=== PATIENT | female | born 1990 | race Caucasian/White ===

== ENCOUNTER 2022-05-16 12:17 | Emergency (ER) | payer BC ==
[~2022-05-16] VITALS: Ht 154.9 cm; Wt 56.7 kg
[2022-05-16 12:17] VITALS: BP_SYST 137
--- NOTE | 2022-05-16 12:20 | NUR ---
Patient triaged and placed. VSS and patient appears in no acute distress at this time. Accompanied by EMT'S, awaiting available bed, and MD notified of need for MSE.
--- NOTE | 2022-05-16 12:25 | NUR ---
PT [facility] 65 FOR TONIC CLONIC SEIZURE AT HOME WITNESSED BY PARENTS LASTING PER EMS AROUND 2 MIN. PT FELL FROM SEAT TO FLOOR, HEMATOMA TO R OCCIPITAL HEAD. PT ARRIVES AAOX4, VSS. PT STATES SHE HAS NOT HAD A SEIZURE IN OVER 10 YEARS AND DOES NOT TAKE MEDICATION.
--- NOTE | 2022-05-16 12:48 | NUR ---
Placed in room 8 . Placed on nurse monitoring, blood pressure machine and pulse oximeter. To gown for exam. Side rails up. Report given to ALESSANDRA CORDOBA.
--- NOTE | 2022-05-16 12:59 | NUR ---
LAB AT THE BEDSIDE FOR BLOOD DRAW
[2022-05-16 13:02] LABS: BASOPHILS # (AUTO) 0.1 K/uL (0.0-0.2); BASOPHILS % (AUTO) 1.1 % (0.0-2.0); EOSINOPHILS # (AUTO) 0.2 K/uL (0.0-0.4); EOSINOPHILS % (AUTO) 2.3 % (0.0-4.0); HEMATOCRIT 38.9 % (36-48); LYMPHOCYTES # (AUTO) 2.1 K/uL (1.0-5.5); MEAN CORPUSCULAR VOLUME 86 fL (79.0-98.0); MONOCYTES # (AUTO) 0.4 K/uL (0.0-1.0); MONOCYTES % (AUTO) 6.1 % (1.7-9.3); NEUTROPHILS # (AUTO) 3.8 K/uL (1.8-7.7); NEUTROPHILS % (AUTO) 58.5 % (40.0-70.0); PLATELET COUNT (AUTO) 251 K/uL (130-430); RED BLOOD CELL COUNT(AUTO) 4.54 MIL/uL (4.2-6.2); RED CELL DISTRIBUTION WIDTH 12.7 % (9.0-15.0); WHITE BLOOD COUNT (AUTO) 6.6 K/uL (4.8-10.8)
[2022-05-16 13:16] LABS: ANION GAP 8 (5-15); CALCIUM 9.1 mg/dL (8.4-11.0); CHLORIDE 104 mmol/L (98-107); CREATININE 0.99 mg/dL (0.55-1.30); GLUCOSE 106 mg/dL (70-99); POTASSIUM 4.2 mmol/L (3.5-5.1); SODIUM SERUM 138 mmol/L (136-145); UREA NITROGEN, BLOOD 8 mg/dL (8-21)
[2022-05-16 13:23] LABS: GFR AFRICAN AMERICAN 84 mL/min (>90)
[2022-05-16] MEDS ORDERED: levETIRAcetam 500 MG TABLET PO ONE (13:30)
[2022-05-16 13:31] LABS: ALANINE AMINOTRANSFERASE 21 U/L (12-78); ALBUMIN 3.5 g/dL (3.4-4.8); ASPARTATE AMINOTRANSFERASE 19 U/L (10-37); TOTAL BILIRUBIN 0.4 mg/dL (0.0-1.0)
[2022-05-16 13:34] LABS: ALCOHOL, BLOOD < 3 mg/dL (<10); HCG,QUANTITATIVE 1 mIU/ML (0-6)
--- NOTE | 2022-05-16 13:55 | NUR ---
ER Dr. Payne at bedside examining patient.
--- NOTE | 2022-05-16 14:22 | NUR ---
Patient transported to radiology via GURNEY, accompanied by STAFF.
[2022-05-16 14:40] LABS: BILIRUBIN,URINE NEGATIVE (NEGATIVE); CLARITY/URINE CLEAR (CLEAR); COLOR,URINE YELLOW (YELLOW); GLUCOSE,URINE NEGATIVE (NEGATIVE); KETONES,URINE NEGATIVE (NEGATIVE); LEUKOCYTE ESTERASE ,URINE NEGATIVE (NEGATIVE); NITRITE, URINE NEGATIVE (NEGATIVE); PROTEIN URINE TRACE (NEGATIVE); UROBILINOGEN,URINE 0.2 (0.2-1.0)
[2022-05-16 14:53] LABS: BLOOD, URINE TRACE (NEGATIVE)
[2022-05-16 14:54] LABS: BACTERIA,URINE FEW /HPF (None Seen); MUCUS,URINE None Seen /LPF (None Seen); RBC,URINE NONE SEEN /HPF (0-3); WBC,URINE 0-3 /HPF (0-3)
[2022-05-16 15:01] LABS: BARBITURATE, URINE NEGATIVE (NEG <=200); BENZODIAZEPINE, URINE NEGATIVE (NEG <=150); CANNABINOID, URINE NEGATIVE (NEG <=50); COCAINE, URINE NEGATIVE (NEG <=150); METHAMPHETAMINES SCREEN,URINE NEGATIVE (NEG <=500); OPIATE, URINE NEGATIVE (NEG <=100); PHENCYCLIDINE SCREEN,URINE NEGATIVE (NEG <=25); UR TRICYCLIC ANTIDEPRESSANTS NEGATIVE (NEG <=300); URINE AMPHETAMINE NEGATIVE (NEG <=500); URINE METHADONE NEGATIVE (NEG <=200); URINE OXYCODONE SCREEN NEGATIVE (NEG <=100); URINE PROPOXYPHENE SCREEN NEGATIVE (NEG <=300)
[2022-05-16] MEDS ORDERED: LEVE500T9 PO (15:20)
--- NOTE | 2022-05-16 16:15 | NUR ---
Patient given written and verbal discharge instructions and verbalizes understanding. ER MD discussed with patient the results and treatment provided. Patient in stable condition. ID arm band removed. IV catheter removed intact and dressing applied, no active bleeding. Rx of keppra given. Patient educated on pain management and to follow up with PMD. Pain Scale 0/10. Opportunity for questions provided and answered. Medication side effect fact sheet provided.
== END 2022-05-16 16:15 | disposition home or self-care (01) ==
LOC: SED 12:17
DX: R56.9 Unspecified convulsions (principal); Z88.3 Allergy status to other anti-infective agents; Z79.899 Other long term (current) drug therapy
CPT/HCPCS: 99284; 70450; 80307; 80053; 84702; 85025; 36415; 76376; 81025; 81000; G0482